=== PATIENT | female | born 1980 | race Caucasian/White ===

== ENCOUNTER 2018-07-11 09:51 | Emergency (ER) | payer BC | END 2018-07-11 12:29 | disposition home or self-care (01) | LOC: FTE 09:51 | DX: S80.212A Abrasion, left knee, initial encounter (principal); S60.811A Abrasion of right wrist, initial encounter; S60.812A Abrasion of left wrist, initial encounter; V28.4XXA Motorcycle driver injured in noncollision transport accident in traffic accident, initial encounter | CPT/HCPCS: 73562; 99283-25 ==